=== PATIENT | female | born 1995 | race Hispanic/Latino ===

== ENCOUNTER 2025-07-20 17:23 | Observation (INO) | payer OTHER, SELFPAY ==
[2025-07-20 17:31] VITALS: BP 131/72; BMI 35.3
[2025-07-20 17:54] LABS: Hematocrit 35.5 % (37.0-47.0); Hemoglobin 12.6 g/dL (12.0-16.0); Mean Corp Hgb Conc. 35.5 g/dL (33.0-37.0); Mean Corpuscular Volume 85.5 fL (81.0-99.0); Platelet Count 430 10^3/uL (130-400); Red Cell Dist. Width 13.2 % (11.5-14.5)
[2025-07-20 18:49] LABS: ALT (SGPT) 74 U/L (0-35); AST (SGOT) 95 U/L (14-36); Albumin 3.7 g/dl (3.5-5.0); Alkaline Phosphatase 245 U/L (38-126); Blood Urea Nitrogen 4 mg/dl (7-17); Calcium 9.4 mg/dl (8.4-10.2); Carbon Dioxide 21 mmol/L (22-30); Chloride 103 mmol/L (98-107); Estimated Creatinine Clearance > 125 ml/min; Glucose 89 mg/dl (70-99); Potassium 4.5 mmol/L (3.5-5.1); Sodium 130 mmol/L (135-145); Total Protein 6.9 g/dl (6.3-8.2); eGFR > 60.00
[2025-07-21 05:55] LABS: ALT (SGPT) 71 U/L (0-35); AST (SGOT) 71 U/L (14-36)
--- NOTE | 2025-07-21 11:22 | CM ---
Patient seen on Labor and Delivery floor. Patient states she lives with her daughter in a housing apartment and she has a CM named Holt [phone]/ housing group [phone] and CM called and left message requesting call back to confirm status
of patient housing. Patient states that housing program has provided everything for baby, food, housing and all equipment for baby. Patient states her daughter is safe with extended family and she has a ride to her apartment and supports from family
and housing group in place. CM will follow for discharge planning needs.
Plan; home with housing group supports
[2025-07-21 18:48] LABS: Hepatitis B Surface Antigen Negative (Negative)
[2025-07-21 19:07] LABS: Hepatitis C Antibody Negative (Negative)
[2025-07-22 12:57] LABS: Syphilis/T. pallidum Ab Reflex Negative (Negative)
== END 2025-07-21 11:09 | disposition home or self-care (01) ==
LOC: LDRP 17:23
PROVIDERS: ADMITTING PHYSICIAN Obstetrics & Gynecology
DX: O36.8330 Maternal care for abnormalities of the fetal heart rate or rhythm, third trimester, not applicable or unspecified (principal); R10.9 Unspecified abdominal pain; R00.0 Tachycardia, unspecified; O99.323 Drug use complicating pregnancy, third trimester; O09.33 Supervision of pregnancy with insufficient antenatal care, third trimester; Z3A.37 37 weeks gestation of pregnancy; F12.90 Cannabis use, unspecified, uncomplicated; J45.909 Unspecified asthma, uncomplicated; F43.10 Post-traumatic stress disorder, unspecified; O99.343 Other mental disorders complicating pregnancy, third trimester; F41.9 Anxiety disorder, unspecified; F32.A Depression, unspecified; Z88.1 Allergy status to other antibiotic agents; Z88.2 Allergy status to sulfonamides; Z88.8 Allergy status to other drugs, medicaments and biological substances; Z91.51 Personal history of suicidal behavior; Z91.410 Personal history of adult physical and sexual abuse; Z63.0 Problems in relationship with spouse or partner; Z63.79 Other stressful life events affecting family and household; Z63.6 Dependent relative needing care at home; Z59.82 Transportation insecurity
CPT/HCPCS: 76815; 80053; 80306; 82570; 84156; 84450; 84460; 85027; 86704; 86706; 86762; 86780; 86803; 86850; 86900; 86901; 87340; 87389; 87491; 87591; G0378

== ENCOUNTER 2025-08-08 08:36 | Inpatient (IN) | payer OTHER, SELFPAY ==
[2025-08-08 08:44] VITALS: BP 136/91; BMI 34.7
[2025-08-08] MEDS: LR 1000 IV ×3 (10:10→16:33)
[2025-08-08 10:13] LABS: Hematocrit 36.6 % (37.0-47.0); Hemoglobin 12.7 g/dL (12.0-16.0); Mean Corp Hgb Conc. 34.7 g/dL (33.0-37.0); Mean Corpuscular Volume 85.1 fL (81.0-99.0); Nucleated Red Blood Cells % 0 %; Platelet Count 424 10^3/uL (130-400); Red Cell Dist. Width 13.0 % (11.5-14.5)
[2025-08-08] MEDS: FENTANYL/BUPIVACAINE 100 EPIDURAL (10:52)
[2025-08-08] MEDS: SUBLIMAZE 100 MCG EPIDURAL (10:52)
[2025-08-08] MEDS: TUMS CHEWABLE TABLET 400 MG PO (12:01)
[2025-08-08] MEDS: PITOCIN 30 UNITS/NSS 500 ML IV (17:17)
[2025-08-08] MEDS: COLACE 100 MG PO (19:45)
[2025-08-08] MEDS: MOTRIN 600 MG PO (19:45)
[2025-08-08] MEDS: TYLENOL 650 MG PO (23:50)
[2025-08-09] MEDS: MOTRIN 600 MG PO ×4 (02:53→19:42)
[2025-08-09 04:47] LABS: Hematocrit 30.7 % (37.0-47.0); Hemoglobin 10.5 g/dL (12.0-16.0)
[2025-08-09] MEDS: COLACE 100 MG PO ×2 (08:39→19:43)
[2025-08-09] MEDS: PRENATAL PLUS 1 TABLET PO (08:39)
[2025-08-09] MEDS: TYLENOL 650 MG PO ×3 (13:55→23:45)
--- NOTE | 2025-08-09 14:10 | CM ---
CM reviewed chart, consult received regarding positive screen for marijuana.
Mother seen bedside with daughter, Lea Becerra (: 08/08/25).
Mother confirms she resides at [facility] in [place]- confirms plan is to return.
CM reviewed with Nurse. Per previous admission- mom resides [facility] [place]- patient was set up with housing through [facility].
Per previous CM note from July 2025- mom has a housing group CM- [facility] [phone].
Mom positive for marijuana 08/08/25- per mom, does not have medical marijuana card. Meconium pending.
Mom reports she has been with [facility] as of June, prior to June was back and forth between [place] and [place].
Mom confirms primary contact listed, Michelle, is a family friend and support.
Mom reports she is uncertain of who father is for baby.
Mom confirms she has a eight year old, Loretta Reardon ( 02/08/2017)- currently staying with her biological father- however child resides with mom permanently.
Mom reports she did not have care, was seen at [facility]- unsure who Doctor was.
Mom confirms she has everything she needs for baby, was provided by [facility].
Mom aware report will be made to [facility], denies any hx with social media coordinator.
Referral to [facility]- pulp refiner operator ID [id number].
Plan; referral to [facility], baby cannot be released until clearance from [facility].
[2025-08-09 15:09] LABS: Syphilis/T. pallidum Ab Reflex Negative (Negative)
[2025-08-10] MEDS: MOTRIN 600 MG PO ×2 (02:00→08:28)
[2025-08-10] MEDS: TYLENOL 650 MG PO ×2 (06:09→12:16)
[2025-08-10] MEDS: COLACE 100 MG PO (08:27)
[2025-08-10] MEDS: PRENATAL PLUS 1 TABLET PO (08:27)
--- NOTE | 2025-08-10 11:45 | CM ---
CM reviewed chart, received VM from [facility] house trailer, Francisco [phone].
Per Francisco, mother is cleared for d.c by [facility].
Meconium results faxed to [facility].
CM will continue to follow.
Plan; cleared for d/c by [facility]
== END 2025-08-10 14:10 | disposition home or self-care (01) | DRG 807 ==
LOC: LDRP 08:36
PROVIDERS: ADMITTING PHYSICIAN Obstetrics & Gynecology
PROC: 0HQ9XZZ Repair Perineum Skin, External Approach (ICD-10-PCS; 2025-08-08)
PROC: 10E0XZZ Delivery of Products of Conception, External Approach (ICD-10-PCS; 2025-08-08)
DX: O69.81X0 Labor and delivery complicated by cord around neck, without compression, not applicable or unspecified (principal); Z37.0 Single live birth; Z3A.39 39 weeks gestation of pregnancy; O70.0 First degree perineal laceration during delivery; O77.0 Labor and delivery complicated by meconium in amniotic fluid
CPT/HCPCS: 80306; 85014; 85018; 85025; 86780; 86850; 86900; 86901; 88307